=== PATIENT | male | born 1995 | race Caucasian/White ===

== ENCOUNTER 2020-03-26 17:00 | Emergency (ER) | payer BC, SELFPAY ==
[~2020-03-26] VITALS: Ht 177.8 cm; Wt 79.4 kg
[2020-03-26 17:04] VITALS: Ht 177.8 cm; Wt 79.4 kg
[2020-03-26 19:49] VITALS: BP 127/84
== END 2020-03-26 19:49 | disposition home or self-care (01) ==
LOC: ED 17:00
DX: B34.9 Viral infection, unspecified (principal); Z20.828 Contact with and (suspected) exposure to other viral communicable diseases
CPT/HCPCS: 87804; Q0092

== ENCOUNTER 2020-04-04 17:38 | Emergency (ER) | payer BC, SELFPAY ==
[~2020-04-04] VITALS: Ht 180.3 cm; Wt 79.4 kg
[2020-04-04 18:04] VITALS: Ht 180.3 cm; Wt 79.4 kg
[2020-04-04 20:30] VITALS: BP 102/58
== END 2020-04-04 20:30 | disposition home or self-care (01) ==
LOC: ED 17:38
DX: J18.9 Pneumonia, unspecified organism (principal)
CPT/HCPCS: J0696; Q0092